=== PATIENT | male | born 1985 | race Caucasian/White ===

== ENCOUNTER 2016-10-07 18:38 | Emergency (ER) | payer MEDICAID ==
[~2016-10-07] VITALS: Ht 160 cm; Wt 63.0 kg
[2016-10-07 19:01] VITALS: Ht 160 cm; Wt 63.0 kg
[2016-10-07] MEDS ORDERED: ONDANSETRON 4 MG INJ IV STA (20:32)
[2016-10-07] MEDS ORDERED: SOD CHLORIDE 0.9% 1,000 ML IV STA (20:32)
[2016-10-07 21:14] LABS: ADD SCAN DIFF NO
[2016-10-07 21:17] LABS: BASOPHILS % 0.3 % (0.0-2.0); EOSINOPHILS # 0.1 10^3/ul (0.0-0.5); EOSINOPHILS % 1.3 % (0.0-7.0); HEMATOCRIT 46.4 % (42.0-52.0); HEMOGLOBIN 16.4 g/dl (14.0-18.0); LYMPHOCYTES # 2.7 10^3/ul (0.8-2.9); LYMPHOCYTES % 29.7 % (15.0-51.0); MEAN CORPUSCULAR HEMOGLOBIN 31.1 pg (29.0-33.0); MEAN CORPUSCULAR HGB CONC 35.3 g/dl (32.0-37.0); MEAN CORPUSCULAR VOLUME 87.9 fl (82.0-101.0); MEAN PLATELET VOLUME 10.4 fl (7.4-10.4); MONOCYTE # 0.5 10^3/ul (0.3-0.9); MONOCYTES % 5.2 % (0.0-11.0); NEUTROPHIL # 5.7 10^3/ul (1.6-7.5); NEUTROPHILS % 63.1 % (39.0-77.0); PLATELET COUNT 309 10^3/UL (140-415); RED BLOOD COUNT 5.28 10^6/ul (4.70-6.10); RED CELL DISTRIBUTION WIDTH 11.9 % (11.5-14.5); WHITE BLOOD COUNT 9.1 10^3/ul (4.8-10.8)
[2016-10-07 21:35] LABS: ALBUMIN 4.9 g/dl (3.3-4.9); ALBUMIN/GLOBULIN RATIO 1.32; BILIRUBIN,INDIRECT 0.6 mg/dl (0-1.1); BILIRUBIN,TOTAL 0.6 mg/dl (0.2-1.3); CALCIUM 9.5 mg/dl (8.4-10.2); CREATININE 0.76 mg/dl (0.61-1.24); POTASSIUM 3.9 mmol/L (3.5-5.1); TOTAL PROTEIN 8.6 g/dl (6.1-8.1)
--- NOTE | 2016-10-07 22:38 | RADRPT ---
PROCEDURE: CT Head without. CLINICAL INDICATION: Headache, dizziness. TECHNIQUE: The study was performed utilizing a multi-slice, multidetector CT scanner. Direct spira l 1 mm axial sections were obtained through the head without the use of intravenous contrast materia l. 1 or more of the following dose reduction techniques were utilized: Automated exposure control, adjustment of the mA and/or kV according to patient's size, iterative reconstruction technique. Co isai and sagittal reformations were obtained. The images were reviewed on a PACS workstation. RADIATION DOSE: CTDIvol: 44.5 mGyDLP: 630.2 mGy-cm COMPARISON: No prior studies are available for comparison. FINDINGS: There is no intracranial hemorrhage, extra-axial fluid collection, mass lesion, midline shift or hyd rocephalus. The ventricles, sulci and cisterns are within normal limits. The white matter is unrem arkable. The fortune-white matter differentiation is preserved. The basal cisterns are patent. The m idline structures are intact. The orbits, calvarium and extracranial soft tissues are normal in tesha earance. The visualized paranasal sinuses, mastoid air cells and middle ear cavities are normally ae rated. IMPRESSION: 1. No acute intracranial abnormality. No intracranial hemorrhage, extra-axial fluid collection, ma ss lesion or hydrocephalous. RPTAT: HGAS .Shaheen Leija MD, MD Date Time Electronically viewed and signed by .Shaheen Leija MD, MD on 10/07/2016 22:38 .S/
[2016-10-07] MEDS ORDERED: KETOROLAC 30 MG INJ IV STA (22:54)
[2016-10-07] MEDS ORDERED: MECL-77 PO (23:19)
[2016-10-07] MEDS ORDERED: IBUP-1542 PO (23:19)
--- NOTE | 2016-10-07 23:26 | ERD ---
ER Documentation Chief Complaint Date/Time DATE: 10/07/16 TIME: 23:23 Chief Complaint DIZZINESS +VOMITING X1 WEEK OFF AND ON. STATES SOME ANXIETY HPI 31 year old male with no significant past medical history presents to the ED complaining of dizziness and loss of balance that started earlier today at 12 PM. States that it has been going on intermittently for the last week. States that it occurs every 3 hours. Reports that sometimes it is related to positional movements. States that he feels nauseous and had one episode of nonbilious nonbloody vomiting. States that he feels like he is fainting and has some slight blurred vision. Denies any weakness, numbness or tingling, head trauma, chest pain, shortness of breath, abdominal pain, rashes. Denies any injuries. Denies any head trauma. link trainer mechanic used at this time. ROS All systems reviewed and are negative except as per history of present illness. Medications Home Meds Active Scripts Meclizine Hcl* (Meclizine Hcl*) 25 Mg Tablet, 25 MG PO Q8H Y for DIZZINESS, #30 TAB Prov:MYA LARA PA-C 10/07/16 PMhx/Soc Medical and Surgical Hx: pt denies Medical Hx, pt denies Surgical Hx Hx Alcohol Use: No Hx Substance Use: No Hx Tobacco Use: No Smoking Status: Never smoker Physical Exam Vitals Vital Signs Date Time Temp Pulse Resp B/P Pulse Ox O2 Delivery O2 Flow Rate FiO2 10/07/16 23:30 98.4 75 18 143/96 99 Room Air 10/07/16 21:44 71 18 130/82 99 Room Air 68 131/89 69 153/98 10/07/16 19:01 98.8 85 18 152/93 98 Physical Exam Const: Orf-nwy-qvremacxm, well-nourished. In no acute distress. Head: Atraumatic, normocephalic Eyes: Normal Conjunctiva without injection. No purulent discharge. PERRLA. EOMI ENT: Normal external ear. Ear canal without erythema. Tympanic membrane pearly fortune without effusion or bulging. Nasal canal clear with normal turbinates. Moist oropharynx without tonsillar exudates. Non-erythematous pharynx. Uvula midline. No drooling. No trismus. Neck: No cervical midline tenderness. Full range of motion. No meningismus. No cervical lymphadenopathy. No JVD. Resp: Clear to auscultation bilaterally. No wheezing, rhonchi, rales, or crackles. No accessory muscle use. No retractions. Cardio: Regular rate and rhythm. No murmurs, rubs or gallops. Abd: Soft, non tender, non distended. Normal bowel sounds. No palpable masses. No rebound tenderness. No guarding. Negative McBurney's Point. Negative Traore's Sign. Skin: Normal skin turgor. No petechiae or rashes Back: No midline tenderness. No CVA tenderness. Ext: No cyanosis, or edema. Distal pulses intact bilaterally. Neur: Awake and alert. Normal gait. Normal coordination. Cranial Nerves II- VII intact. Normal finger to nose. Muscle strength 5/5. Sensation intact. Psych: Normal Mood and Affect Result Diagram: 10/07/16210210/07/162102 Results 24 hrs Laboratory Tests Test 10/07/16 21:03 White Blood Count 9.110^3/ul Red Blood Count 5.2810^6/ul Hemoglobin 16.4g/dl Hematocrit 46.4% Mean Corpuscular Volume 87.9fl Mean Corpuscular Hemoglobin 31.1pg Mean Corpuscular Hemoglobin Concent 35.3g/dl Red Cell Distribution Width 11.9% Platelet Count 20476^3/UL Mean Platelet Volume 10.4fl Neutrophils % 63.1% Lymphocytes % 29.7% Monocytes % 5.2% Eosinophils % 1.3% Basophils % 0.3% Nucleated Red Blood Cells % 0.0/100WBC Neutrophils # 5.710^3/ul Lymphocytes # 2.710^3/ul Monocytes # 0.510^3/ul Eosinophils # 0.110^3/ul Basophils # 0.010^3/ul Nucleated Red Blood Cells # 0.010^3/ul Sodium Level 138mmol/L Potassium Level 3.9mmol/L Chloride Level 104mmol/L Carbon Dioxide Level 25mmol/L Anion Gap 13 Blood Urea Nitrogen 10mg/dl Creatinine 0.76mg/dl Glucose Level 102mg/dl Calcium Level 9.5mg/dl Total Bilirubin 0.6mg/dl Direct Bilirubin 0.00mg/dl Indirect Bilirubin 0.6mg/dl Aspartate Amino Transf (AST/SGOT) 41IU/L Alanine Aminotransferase (ALT/SGPT) 68IU/L Alkaline Phosphatase 102IU/L Total Protein 8.6g/dl Albumin 4.9g/dl Globulin 3.70g/dl Albumin/Globulin Ratio 1.32 Current Medications Medications (Trade) Dose Ordered Sig/Bianca Route PRN Reason Start Time Stop Time Status Last Admin Dose Admin Sodium Chloride (NS) 1,000 ml @ 1,000 mls/hr Q1H STAT IV 10/07/16 20:32 10/07/16 21:31 DC 10/07/16 21:12 Ondansetron HCl (Zofran Inj) 4 mg ONCE STAT IV 10/07/16 20:32 10/07/16 20:36 DC 10/07/16 21:12 Ketorolac Tromethamine (Toradol) 30 mg ONCE STAT IV 10/07/16 22:54 10/07/16 22:55 DC 10/07/16 23:01 Procedures/MDM This is a 31-year-old male with no significant past medical history presents to the ED complaining of dizziness and vomiting intermittently for the last 3 weeks. Patient is afebrile and nontoxic-appearing. Patient was further worked up with CBC, CMP, lipase, UA, orthostatic vital signs. After this workup, patient stated that he had some frontal headache with some slight blurred vision , therefore a CT of the brain without contrast was ordered to further evaluate patient. Patient's pain and symptoms have improved after treatment with 30 mg IV ketorolac, 4 mg IV Zofran. Orthostatic vital signs are normal. Low suspicion for dehydration. CBC: No leukocytosis. No e/o of systemic infection. No e/o anemia. CMP: No e/o severe acidosis, alkalosis, renal failure, diabetic ketoacidosis, liver disease Lipase within normal limits. EKG reviewed and interpreted by Dr. Plunkett Rate/Rhythm: [82 bpm, Normal Sinus Rhythm] No ectopy, no ST elevations, normal axis. QRS, ST, T-waves: [No changes consistent w/ acute ischemia] Impression: [No evidence of ischemia or arrhythmia] PROCEDURE: CT Head without. CLINICAL INDICATION: Headache, dizziness. TECHNIQUE: The study was performed utilizing a multi-slice, multidetector CT scanner. Direct spiral 1 mm axial sections were obtained through the head without the use of intravenous contrast material. 1 or more of the following dose reduction techniques were utilized: Automated exposure control, adjustment of the mA and/or kV according to patient's size, iterative reconstruction technique. Coronal and sagittal reformations were obtained. The images were reviewed on a PACS workstation. RADIATION DOSE: CTDIvol: 44.5 mGy DLP: 630.2 mGy-cm COMPARISON: No prior studies are available for comparison. FINDINGS: There is no intracranial hemorrhage, extra-axial fluid collection, mass lesion, midline shift or hydrocephalus. The ventricles, sulci and cisterns are within normal limits. The white matter is unremarkable. The fortune-white matter differentiation is preserved. The basal cisterns are patent. The midline structures are intact. The orbits, calvarium and extracranial soft tissues are normal in appearance. The visualized paranasal sinuses, mastoid air cells and middle ear cavities are normally aerated. IMPRESSION: 1. No acute intracranial abnormality. No intracranial hemorrhage, extra-axial fluid collection, mass lesion or hydrocephalous. Patient symptoms could likely be due to positional vertigo. Low suspicion for acute glaucoma, intracranial bleed, subarachnoid hemorrhage, meningitis, TIA, stroke, subdural hematoma, epidural hematoma, seizures, acute myocardial infarction, pneumothorax, pneumonia, cardiac tamponade, pulmonary embolism, AAA , aortic dissection, Boerhaave's syndrome, cardiac dysrhythmias, meningitis, or other emergent conditions. Discharge medications: Meclizine Follow up with primary care physician in 1-2 days for referral to supervisor jewelry department. Instructed patient to return to the ED sooner for any worsening symptoms. Patient's questions were answered. Patient understood and agreed with discharge plan. Patient discharged stable. Departure Diagnosis: Primary Impression: Dizziness Additional Impression: Headache Headache type: unspecified Headache chronicity pattern: unspecified pattern Intractability: not intractable Qualified Code: R51 - Nonintractable headache, unspecified chronicity pattern, unspecified headache type Condition: Stable Patient Instructions: Self-Care for Headaches, Possible Causes of Dizziness or Fainting, Dizziness (Vertigo) and Balance Problems: Ensuring Your Safety, Dizziness, Unk Cause Referrals: [facility] Usted se cardona hecho un examen mdico de control que le indica que no est en sommer condicin que requiera tratamiento urgente en el Departamento de Emergencia. Un estudio ms profundo y el tratamiento de parikh condicin pueden esperar sin ningn riesgo hasta que usted sea atendida/o en el consultorio de parikh mdico o sommer cl ty. Es responsabilidad suya arreglar sommer jessica para el seguimiento del conchis. MANEJO DE CONDICIONES NO URGENTES EN EL FUTURO 1) Si usted tiene un mdico de atencin primaria: Usted debera llamar a parikh mdico de atencin primaria antes de venir al departamento de emergencia. Despus de las horas de consultorio, parikh doctor o parikh asociado/a est disponible por telfono. El mdico o enfermero de maritza en el servicio telefnico puede asesorarle por rosenda medio para atender el problema, o conchis contrario se puede programar sommer jessica. 2) Si usted no tiene un mdico de atencin primaria: Llame al mdico o clnica de referencia que aparece abajo nasim las horas de consultorio para hacer sommer jessica para que le vean. CLINICAS: [facility] [phone] [facility] [phone] [facility] [phone] [facility] [phone] [facility] [place] [id number] [phone] [facility]. [phone] [address] [facility]. [facility] () Usted se cardona hecho un examen mdico de control que le indica que no est en sommer condicin que requiera tratamiento urgente en el Departamento de Emergencia. Un estudio ms profundo y el tratamiento de parikh condicin pueden esperar sin ningn riesgo hasta que usted sea atendida/o en el consultorio de parikh mdico o sommer cl ty. Es responsabilidad suya arreglar sommer jessica para el seguimiento del conchis. MANEJO DE CONDICIONES NO URGENTES EN EL FUTURO 1) Si usted tiene un mdico de atencin primaria: Usted debera llamar a parikh mdico de atencin primaria antes de venir al departamento de emergencia. Despus de las horas de consultorio, parikh doctor o parikh asociado/a est disponible por telfono. El mdico o enfermero de maritza en el servicio telefnico puede asesorarle por rosenda medio para atender el problema, o conchis contrario se puede programar sommer jessica. 2) Si usted no tiene un mdico de atencin primaria: Llame al mdico o condado institucions de referencia que aparece abajo nasim las horas de consultorio para hacer sommer jessica para que le vean. SI USTED NO PUEDE PAGAR PARA YAMIL UN MEDICO puede ir a: [facility] [id number] [place] [address] [facility] [address] [place] [address] [facility] [address] [place] [address] [facility] [address] [place], [place] [id number] [facility]CIAL[facility] Additional Instructions: Llame al doctor MAANA y phong sommer JESSICA PARA DENTRO DE 2-3 SORTO.Dgale a la secretaria que nosotros le instruimos hacer esta jessica.Avise o llame si parikh condicin se empeora antes de la jessica. Regresa aqui si peor o no mejor. MYA LARA PA-C Oct 07, 2016 23:26
[2016-10-07 23:30] VITALS: BP 143/96; PULSE 75; RESP 18; TEMP 98.4
== END 2016-10-07 23:30 | disposition home or self-care (01) ==
LOC: FTE 18:38
DX: R42 Dizziness and giddiness (principal); R51 Headache
CPT/HCPCS: 36415; 70450; 80053; 85025; 93005; 96374; 96375; J1885; J2405; J7030; Z7502

== ENCOUNTER 2017-02-22 15:43 | Emergency (ER) | payer MEDICAID ==
[~2017-02-22] VITALS: Ht 170.2 cm; Wt 74.0 kg
[~2017-02-22 15:43] MED LIST: MECL-77 PO
[2017-02-22 15:50] VITALS: Ht 170.2 cm; Wt 74.0 kg
[2017-02-22] MEDS ORDERED: IBUPROFEN 600 MG TAB PO ONE (17:30)
[2017-02-22 17:36] LABS: BASOPHIL # 0.1 10^3/ul (0.0-0.1); BASOPHILS % 0.8 % (0.0-2.0); EOSINOPHILS # 0.1 10^3/ul (0.0-0.5); EOSINOPHILS % 1.1 % (0.0-7.0); HEMATOCRIT 45.1 % (42.0-52.0); HEMOGLOBIN 15.9 g/dl (14.0-18.0); LYMPHOCYTES # 1.8 10^3/ul (0.8-2.9); MEAN CORPUSCULAR HEMOGLOBIN 31.9 pg (29.0-33.0); MEAN CORPUSCULAR HGB CONC 35.3 g/dl (32.0-37.0); MEAN CORPUSCULAR VOLUME 90.6 fl (82.0-101.0); MEAN PLATELET VOLUME 9.9 fl (7.4-10.4); MONOCYTE # 0.7 10^3/ul (0.3-0.9); MONOCYTES % 7.8 % (0.0-11.0); NEUTROPHILS % 69.6 % (39.0-77.0); PLATELET COUNT 258 10^3/UL (140-415); RED BLOOD COUNT 4.98 10^6/ul (4.70-6.10); RED CELL DISTRIBUTION WIDTH 11.6 % (11.5-14.5); WHITE BLOOD COUNT 9.1 10^3/ul (4.8-10.8)
[2017-02-22 17:54] LABS: CALCIUM 9.4 mg/dl (8.4-10.2); CREATININE 0.92 mg/dl (0.61-1.24); POTASSIUM 3.8 mmol/L (3.5-5.1)
--- NOTE | 2017-02-22 18:13 | RADRPT ---
PROCEDURE: CT Brain without contrast. CLINICAL INDICATION: Pain, headache TECHNIQUE: Routine CT scan of the brain was performed on a high resolution multi detector scanner without intravenous contrast. One or more of the following dose reduction techniques were used: Auto mated exposure control; Adjustment of the mA and/or kV according to patient size; Use of iterative r econstruction technique. CTDI = 43 mGy. DLP = 630 mGy-cm. COMPARISON: No prior relevant examinations are available for comparison. FINDINGS: Hemorrhage: No evidence of intracranial hemorrhage. Acute ischemic changes: No evidence of acute ischemic changes. Mass effect: None. Parenchymal volume: Within normal limits for age. Ventricular system: Concordant with parenchymal volume. Chronic changes: Parenchymal attenuation is within normal limits. Extracranial soft tissues: Unremarkable. Calvarium: No fractures. Paranasal sinuses: Visualized paranasal sinuses are clear. Mastoid air cells: Visualized mastoid air cells are clear. IMPRESSION: No acute intracranial abnormalities. Normal appearance of the brain parenchyma. RPTAT: AADD .Ace Quick MD, MD Date Time Electronically viewed and signed by .Ace uQick MD, on 02/22/2017 18:12 .B/
[2017-02-22] MEDS ORDERED: IBUP-1542 PO (18:15)
--- NOTE | 2017-02-22 18:23 | ERD ---
ER Documentation Chief Complaint Date/Time DATE: 02/22/17 TIME: 18:21 Chief Complaint pt bib family with c/o headache x 1 month, fatigue HPI This is a 31-year-old male presents to the ER stating he has had a headache for the last 4 months. Patient states that he has a head bandlike headache that has been constant and occurs every single day. He also feels very sleepy, and fatigued. He feels as if his brain is wasting away. Patient denies any head trauma. He denies any fevers or chills. He denies any vision loss or vision changes. He denies any neck pain or neck stiffness. He denies any nausea vomiting or diarrhea.Patient has a past medical history of anxiety. ROS 12 point review of systems was done, all negative except per HPI. Medications Home Meds Active Scripts Ibuprofen* (Motrin*) 600 Mg Tab, 600 MG PO Q6, #30 TAB Prov:MANDEEP CUEVA 02/22/17 Meclizine Hcl* (Meclizine Hcl*) 25 Mg Tablet, 25 MG PO Q8H Y for DIZZINESS, #30 TAB Prov:MYA LARA PA-C 10/07/16 Allergies Allergies: Coded Allergies: No Known Allergy (Unverified , 02/22/17) PMhx/Soc Medical and Surgical Hx: pt denies Medical Hx, pt denies Surgical Hx Hx Alcohol Use: No Hx Substance Use: No Hx Tobacco Use: No Smoking Status: Never smoker Physical Exam Vitals Vital Signs Date Time Temp Pulse Resp B/P Pulse Ox O2 Delivery O2 Flow Rate FiO2 02/22/17 15:50 97.3 84 16 142/82 99 Physical Exam GENERAL: The patient is well developed and appropriate for usual state of health , in no apparent distress. HEENT: Atraumatic. Conjunctivae are pink. Pupils equal, round, and reactive to light. Extraocular muscles are grossly intact. Bilateral tympanic membranes are clear with no evidence of erythema, bulging or perforation. No sinus tenderness. NECK: C-spine is soft and supple. There is no cervical lymphadenopathy. CHEST: Clear to auscultation bilaterally. There are no rales, wheezes or rhonchi. HEART: Regular rate and rhythm. No murmurs, clicks, rubs or gallops. EXTREMITIES: Equal pulses bilaterally. There is no peripheral clubbing, cyanosis or edema. No focal swelling or erythema. Full range of motion. Grossly neurovascularly intact. NEURO: Alert and oriented. Cranial nerves II through XII are intact. Motor strength in all 4 extremities with 5/5 strength. Sensation grossly intact. Normal speech and gait. Negative Rhomberg. +2 DTRs. SKIN: There is no apparent rash or petechia. The skin is warm and dry. Result Diagram: 02/22/17 1729 02/22/17 1729 Results 24 hrs Laboratory Tests Test 02/22/17 17:29 White Blood Count 9.110^3/ul Red Blood Count 4.9810^6/ul Hemoglobin 15.9g/dl Hematocrit 45.1% Mean Corpuscular Volume 90.6fl Mean Corpuscular Hemoglobin 31.9pg Mean Corpuscular Hemoglobin Concent 35.3g/dl Red Cell Distribution Width 11.6% Platelet Count 51727^3/UL Mean Platelet Volume 9.9fl Neutrophils % 69.6% Lymphocytes % 20.0% Monocytes % 7.8% Eosinophils % 1.1% Basophils % 0.8% Nucleated Red Blood Cells % 0.0/100WBC Neutrophils # (Manual) 6.410^3/ul Lymphocytes # 1.810^3/ul Monocytes # 0.710^3/ul Eosinophils # 0.110^3/ul Basophils # 0.110^3/ul Nucleated Red Blood Cells # 0.010^3/ul Sodium Level 142mmol/L Potassium Level 3.8mmol/L Chloride Level 106mmol/L Carbon Dioxide Level 25mmol/L Anion Gap 15 Blood Urea Nitrogen 14mg/dl Creatinine 0.92mg/dl Glucose Level 107mg/dl Calcium Level 9.4mg/dl Current Medications Medications (Trade) Dose Ordered Sig/Bianca Route PRN Reason Start Time Stop Time Status Last Admin Dose Admin Ibuprofen (Motrin) 600 mg ONCE ONCE PO 02/22/17 17:30 02/22/17 17:31 DC 02/22/17 17:40 Procedures/MDM Differential Diagnosis includes but is not limited to; tension headache, migraine headache, cluster headache, sinus headache, nonspecific febrile headache, trigeminal neurologia, subdural hematoma, subarachnoid bleeding, meningitis, encephalitis. Patient is neurologically intact with no focal neurological deficits. At this time patient is likely suffering from tension headaches. Patient should follow-up with a neurologist as soon as possible as is been going on for the last 3 months. Suspicion for acute intracranial emergency is low. I advised patient against CT imaging, however patient was very insistent upon imaging. CT imaging was completely negative for any tumors or intracranial bleeds. Patient will be sent home with ibuprofen. He needs to follow-up with his primary care doctor within 1-2 days return to ER sooner if symptoms worsen. My medical decision making shared with the patient understands and agrees with plan. Departure Diagnosis: Primary Impression: Headache Condition: Stable Patient Instructions: Self-Care for Headaches Additional Instructions: Llame al doctor FARZANEH y phong sommer JESSICA PARA DENTRO DE 1-2 SORTO.Dgale a la secretaria que nosotros le instruimos hacer esta jessica.Avise o llame si parikh condicin se empeora antes de la jessica. Regresa aqui si peor o no mejor. MANDEEP CUEVA Feb 22, 2017 18:23
[2017-02-22 18:59] VITALS: BP 151/99; PULSE 91; RESP 15; TEMP 98.2
== END 2017-02-22 19:00 | disposition home or self-care (01) ==
LOC: FTE 15:43
DX: R51 Headache (principal)
CPT/HCPCS: 36415; 70450; 80048; 85025; Z7502; Z7610

== ENCOUNTER 2017-05-10 21:54 | Emergency (ER) | payer MEDICAID ==
[~2017-05-10] VITALS: Ht 165.1 cm; Wt 72.7 kg
[~2017-05-10 21:54] MED LIST changes: +IBUP-1542 PO
[2017-05-10 21:59] VITALS: Ht 165.1 cm; Wt 72.7 kg
[2017-05-10] MEDS ORDERED: LORAZEPAM 2 MG INJ IV ONE (22:30)
[2017-05-10] MEDS ORDERED: LACTATED RINGER'S 1,000 ML IV ONE (22:30)
[2017-05-10] MEDS ORDERED: LORA-441 PO (22:46)
--- NOTE | 2017-05-10 22:54 | ERD ---
ER Documentation Chief Complaint Chief Complaint BIBA x anxiety attack, pill not working HPI 31-year-old male with history of anxiety presents with palpitations, paresthesias, dizziness while at [employer], he complains of shortness of breath. He has had similar symptoms in the past. He denies fevers or chills, no cough, no calf or leg swelling, no loss of consciousness, no chest pain. Patient denies suicidal homicidal ideation. ROS All systems reviewed and are negative except as per history of present illness. Medications Home Meds Active Scripts Lorazepam* (Ativan*) 0.5 Mg Tablet, 0.5 MG PO Q8H Y for ANXIETY, #12 TAB Prov:ANTONELLA MILES MD 05/10/17 Ibuprofen* (Motrin*) 600 Mg Tab, 600 MG PO Q6, #30 TAB Prov:MANDEEP CUEVA 02/22/17 Meclizine Hcl* (Meclizine Hcl*) 25 Mg Tablet, 25 MG PO Q8H Y for DIZZINESS, #30 TAB Prov:MYA LARA PA-C 10/07/16 Allergies Allergies: Coded Allergies: No Known Allergy (Unverified , 02/22/17) PMhx/Soc Anxiety Hx Alcohol Use: No Hx Substance Use: No Hx Tobacco Use: No FmHx Family History: No diabetes Physical Exam Vitals Vital Signs Date Time Temp Pulse Resp B/P Pulse Ox O2 Delivery O2 Flow Rate FiO2 05/11/17 00:45 98.4 86 16 126/91 95 Room Air 05/10/17 23:00 98.6 94 21 125/80 96 Room Air 05/10/17 21:59 97.1 125 22 180/113 98 Physical Exam GENERAL: Well-developed, well-nourished, anxious, afebrile HEENT: Moist mucous membranes, pink conjunctiva, no cervical spine tenderness or step-off deformities, no goiter, no jaundice or icterus, extraocular movements intact without pain. No submandibular induration, and no pharyngeal erythema NEURO: Alert and oriented 3, cranial nerves II through XII intact bilaterally, pupils equal round reactive to light, no focal deficits or facial asymmetry, sensation intact distally Strength 5/5 in upper and lower extremities bilaterally CARDIAC: Tachycardic and regular, no murmurs rubs or gallops LUNGS: Clear bilaterally no wheezing crackles or stridor ABDOMEN: Soft nontender, no guarding, no rigidity, no rebound, no psoas sign no obturator sign. Normoactive bowel sounds SKIN: Warm and dry to touch, no abrasions, contusions, or hematomas, no lacerations, no ecchymosis, no target lesions, and without ulcers EXTREMITIES: No clubbing cyanosis or edema, calves are bilaterally symmetrical, no Homans sign, no popliteal cord sign. Distal pulses equal and bilateral PSYCH: Appears anxious Result Diagram: 05/10/17223105/10/172231 Results 24 hrs Laboratory Tests Test 05/10/17 22:32 White Blood Count 10.910^3/ul Red Blood Count 5.2210^6/ul Hemoglobin 16.3g/dl Hematocrit 45.9% Mean Corpuscular Volume 87.9fl Mean Corpuscular Hemoglobin 31.2pg Mean Corpuscular Hemoglobin Concent 35.5g/dl Red Cell Distribution Width 11.4% Platelet Count 77932^3/UL Mean Platelet Volume 10.6fl Neutrophils % 78.4% Lymphocytes % 14.2% Monocytes % 5.5% Eosinophils % 0.5% Basophils % 0.5% Nucleated Red Blood Cells % 0.0/100WBC Neutrophils # 8.610^3/ul Lymphocytes # 1.610^3/ul Monocytes # 0.610^3/ul Eosinophils # 0.110^3/ul Basophils # 0.110^3/ul Nucleated Red Blood Cells # 0.010^3/ul Sodium Level 143mmol/L Potassium Level 3.5mmol/L Chloride Level 104mmol/L Carbon Dioxide Level 21mmol/L Anion Gap 22 Blood Urea Nitrogen 7mg/dl Creatinine 0.81mg/dl Glucose Level 156mg/dl Calcium Level 10.0mg/dl Total Bilirubin 0.3mg/dl Direct Bilirubin 0.00mg/dl Indirect Bilirubin 0.3mg/dl Aspartate Amino Transf (AST/SGOT) 87IU/L Alanine Aminotransferase (ALT/SGPT) 225IU/L Alkaline Phosphatase 93IU/L Troponin I < 0.012ng/ml Total Protein 9.0g/dl Albumin 5.0g/dl Globulin 4.00g/dl Albumin/Globulin Ratio 1.25 Lipase 143U/L Current Medications Medications (Trade) Dose Ordered Sig/Bianca Route PRN Reason Start Time Stop Time Status Last Admin Dose Admin Lactated Ringer's (Lr) 1,000 ml @ 1,000 mls/hr Q1H ONCE IV 05/10/17 22:30 05/10/17 23:29 DC 05/10/17 22:39 Lorazepam (Ativan) 1 mg ONCE ONCE IV 05/10/17 22:30 05/10/17 22:32 DC 05/10/17 22:39 Procedures/MDM IV line was established patient was placed on cardiac monitor technician rhythm strip revealed a sinus tachycardia at 140 bpm with upright P and T waves. Patient was afebrile I administered LR IV 1, and lorazepam 1 mg IV with good response. EKG performed, read by me: Normal sinus rhythm at 91 bpm, normal sinus rhythm, normal axis, nonspecific ST abnormality in V2, no concerning ST elevations or depressions noted, narrow QRS complex, with good R-wave progression in precordial leads. CBC and electrolytes are normal, liver function tests were normal, troponin was negative. Vital signs improved, symptoms improved. Differential diagnoses considered, included but not limited to acute coronary syndrome, pulmonary embolism, aortic dissection, abdominal aortic aneurysm, sepsis, stroke, meningitis, encephalitis, pneumonia, appendicitis, cholecystitis , bowel obstruction, pyelonephritis, nephrolithiasis, cystitis, as well as metabolic, hematologic, and electrolyte abnormalities. As well as abscess, cellulitis, fractures, and dislocations. Patient feels much better at this time, and vital signs are normal, symptoms have improved. I did give strict instructions to return to the ED if symptoms continue or worsen, patient will otherwise follow-up with primary care physician. Patient understood instructions and agreed to plan. Disclaimer: Inadvertent spelling and grammatical errors are likely due to EHR/ dictation software use and do not reflect on the overall quality of patient care. Also, please note that the electronic time recorded on this note does not necessarily reflect the actual time of the patient encounter. Departure Diagnosis: Primary Impression: Anxiety attack Condition: Good Patient Instructions: Anxiety Reaction ANTONELLA MILES MD May 10, 2017 22:54
[2017-05-10 23:26] LABS: BASOPHIL # 0.1 10^3/ul (0.0-0.1); BASOPHILS % 0.5 % (0.0-2.0); EOSINOPHILS # 0.1 10^3/ul (0.0-0.5); EOSINOPHILS % 0.5 % (0.0-7.0); HEMATOCRIT 45.9 % (42.0-52.0); HEMOGLOBIN 16.3 g/dl (14.0-18.0); LYMPHOCYTES # 1.6 10^3/ul (0.8-2.9); LYMPHOCYTES % 14.2 % (15.0-51.0); MEAN CORPUSCULAR HEMOGLOBIN 31.2 pg (29.0-33.0); MEAN CORPUSCULAR HGB CONC 35.5 g/dl (32.0-37.0); MEAN CORPUSCULAR VOLUME 87.9 fl (82.0-101.0); MEAN PLATELET VOLUME 10.6 fl (7.4-10.4); MONOCYTE # 0.6 10^3/ul (0.3-0.9); MONOCYTES % 5.5 % (0.0-11.0); NEUTROPHIL # 8.6 10^3/ul (1.6-7.5); NEUTROPHILS % 78.4 % (39.0-77.0); PLATELET COUNT 270 10^3/UL (140-415); RED BLOOD COUNT 5.22 10^6/ul (4.70-6.10); RED CELL DISTRIBUTION WIDTH 11.4 % (11.5-14.5); WHITE BLOOD COUNT 10.9 10^3/ul (4.8-10.8)
[2017-05-10 23:45] LABS: ALANINE AMINOTRANSFERASE 225 IU/L (13-69); ALBUMIN/GLOBULIN RATIO 1.25; ALKALINE PHOSPHATASE 93 IU/L (42-121); ANION GAP 22 (8-16); ASPARTATE AMINO TRANSFERASE 87 IU/L (15-46); BILIRUBIN,INDIRECT 0.3 mg/dl (0-1.1); BILIRUBIN,TOTAL 0.3 mg/dl (0.2-1.3); BLOOD UREA NITROGEN 7 mg/dl (7-20); CARBON DIOXIDE 21 mmol/L (21-31); CHLORIDE 104 mmol/L (97-110); CREATININE 0.81 mg/dl (0.61-1.24); GLUCOSE 156 mg/dl (70-220); POTASSIUM 3.5 mmol/L (3.5-5.1); SODIUM 143 mmol/L (135-144)
[2017-05-11] LABS: TROPONIN-I < 0.012 ng/ml (0.00-0.12)
[2017-05-11 00:45] VITALS: BP 126/91; PULSE 86; RESP 16; TEMP 98.4
== END 2017-05-11 00:50 | disposition home or self-care (01) ==
LOC: E/R 21:54
DX: F41.9 Anxiety disorder, unspecified (principal); R00.2 Palpitations
CPT/HCPCS: 36415; 80053; 83690; 84484; 85025; 96374; J2060; J7120; Z7502; 93005

== ENCOUNTER 2017-06-16 16:47 | Emergency (ER) | END 2017-06-16 20:49 | disposition home or self-care (01) ==

== ENCOUNTER 2017-06-30 21:31 | Emergency (ER) | END 2017-07-01 01:00 | disposition left against medical advice (07) ==

== ENCOUNTER 2017-11-11 15:40 | Emergency (ER) | END 2017-11-11 17:20 | disposition home or self-care (01) ==